=== PATIENT | male | born 1950 | race Caucasian/White ===

== ENCOUNTER 2018-02-03 15:30 | Inpatient (IN) | payer OTHER ==
[~2018-02-03] VITALS: Ht 175.3 cm; Wt 48.1 kg
[2018-02-03 15:33] VITALS: BP_SYST 98
[2018-02-03] MEDS ORDERED: NACL 0.9% 1,000 ML IV ONE ×2 (15:45→16:00)
[2018-02-03 16:03] LABS: HEMATOCRIT 35.9 % (36-54); HEMOGLOBIN 11.4 g/dL (14.0-18.0); MEAN CORPUSCULAR HEMOGLOBIN 32 pg (27-31); MEAN CORPUSCULAR HGB CONC 32 % (32-36); MEAN CORPUSCULAR VOLUME 100 fL (79.0-98.0); PLATELET COUNT (AUTO) 170 K/uL (130-430); RED BLOOD CELL COUNT(AUTO) 3.59 MIL/uL (4.2-6.2); RED CELL DISTRIBUTION WIDTH 23.7 % (9.0-15.0); WHITE BLOOD COUNT (AUTO) 3.2 K/uL (4.8-10.8)
[2018-02-03 16:13] LABS: CALCIUM 8.5 mg/dL (8.4-11.0); CREATININE 1.26 mg/dL (0.55-1.30); POTASSIUM 4.5 mmol/L (3.5-5.1)
[2018-02-03 16:19] LABS: ALBUMIN 2.5 g/dL (3.4-4.8); TOTAL BILIRUBIN 0.5 mg/dL (0.0-1.0)
[2018-02-03 16:20] LABS: PROTHROMBIN TIME 10.4 SECS (9.5-12.5)
[2018-02-03] MEDS ORDERED: ASPIRIN 81 MG TAB.CHEW PO ONE (16:30)
[2018-02-03 17:03] LABS: BAND % (MANUAL) 4 % (0-6); BASOPHILS % (MANUAL) 0 % (0-2); EOSINOPHILS % (MANUAL) 0 % (0-7); LYMPHOCYTES % (MANUAL) 31 % (20-46); MONOCYTES % (MANUAL) 15 % (0-11)
[2018-02-03] MEDS ORDERED: PRO40 PO (17:08)
[2018-02-03] MEDS ORDERED: ABAC1TAB15 PO (17:08)
[2018-02-03] MEDS ORDERED: BISA5TAB10 PO (17:08)
[2018-02-03] MEDS ORDERED: TRAZ-126 PO (17:08)
[2018-02-03] MEDS ORDERED: UBID30CA PO (17:08)
[2018-02-03] MEDS ORDERED: MYL80 PO (17:08)
[2018-02-03] MEDS ORDERED: HEPA500015 SUBCUT (17:08)
[2018-02-03] MEDS ORDERED: DOCU-144 PO (17:08)
[2018-02-03] MEDS ORDERED: SENN8.6T19 PO (17:08)
[2018-02-03] MEDS ORDERED: GABA-529 PO (17:08)
[2018-02-03] MEDS ORDERED: ALBU2.5V7 INH (17:08)
[2018-02-03] MEDS ORDERED: FOLI0.8T42 PO (17:08)
[2018-02-03] MEDS ORDERED: OXYC-521 PO (17:08)
[2018-02-03] MEDS ORDERED: IPRA3AMP9 INH (17:08)
[2018-02-03] MEDS ORDERED: MAR2.5 PO (17:08)
[2018-02-03] MEDS ORDERED: SER25 PO (17:08)
[2018-02-03] MEDS ORDERED: PENT400T12 PO (17:08)
[2018-02-03] MEDS ORDERED: FERR-69 PO (17:08)
[2018-02-03] MEDS ORDERED: TAMS-11 PO (17:08)
[2018-02-03] MEDS ORDERED: AZIT250T PO (17:08)
[2018-02-03] MEDS ORDERED: LIDOINT TP (17:08)
[2018-02-03] MEDS ORDERED: LACT10SO7 PO (17:08)
[2018-02-03] MEDS ORDERED: SULF1TAB48 PO (17:08)
[2018-02-03] MEDS ORDERED: ZIN220 PO (17:08)
[2018-02-03] MEDS ORDERED: FURO-149 PO (17:08)
[2018-02-03] MEDS ORDERED: FINA5TAB3 PO (17:08)
[2018-02-03 17:33] VITALS: BP_SYST 108
[2018-02-03] MEDS ORDERED: DOCUSATE SODIUM 100 MG CAPSULE PO PRN (18:00)
[2018-02-03] MEDS ORDERED: MAGNESIUM SULFATE 50 ML IV PRN (18:00)
[2018-02-03] MEDS ORDERED: ACETAMINOPHEN 325 MG TABLET PO PRN (18:00)
[2018-02-03] MEDS ORDERED: MUPIROCIN 2% TOPICAL OINTMENT 22 GM NS PRN (18:00)
[2018-02-03] MEDS ORDERED: LORazepam 2 MG/ML VIAL IVP PRN (18:00)
[2018-02-03] MEDS ORDERED: traZODone HCL 50 MG TABLET (DESYREL) PO PRN (18:00)
[2018-02-03] MEDS ORDERED: ALBUTEROL SULFATE 0.083% 2.5 MG/3 ML VIAL.NEB INH PRN (18:00)
[2018-02-03] MEDS ORDERED: ZOLPIDEM TARTRATE 5 MG TABLET PO PRN (18:00)
[2018-02-03] MEDS ORDERED: ONDANSETRON HCL 4 MG/2 ML VIAL IVP PRN (18:00)
[2018-02-03] MEDS ORDERED: INSULIN ASPART 100 UNITS/ML, 10 ML VIAL (NovoLOG) SUBCUT PRN (18:00)
[2018-02-03] MEDS ORDERED: POTASSIUM CHLORIDE 20 MEQ TAB.PRT.SR PO PRN (18:00)
[2018-02-03] MEDS ORDERED: DEXTROSE 50% JECT 50 ML DISP.SYRIN IVP PRN (18:00)
[2018-02-03 18:36] VITALS: BP_SYST 108
[2018-02-03] MEDS ORDERED: LACTULOSE 20 GM/30 ML UDC PO PRN (18:45)
[2018-02-03] MEDS ORDERED: VANCOMYCIN HCL 1,000 MG in NS 250 ML IV ONE (19:00)
[2018-02-03] MEDS: MORPHINE 2 MG/ML INJ. SYRINGE IVP PRN (20:00)
[2018-02-03 20:10] VITALS: BP_SYST 97
[2018-02-03] MEDS ORDERED: HEPARIN SODIUM,PORCINE 5000 UNITS/ML VIAL SUBCUT SCH (21:00)
[2018-02-03] MEDS: GABAPENTIN 100 MG CAPSULE PO SCH (21:46)
[2018-02-03] MEDS: DOCUSATE SODIUM 100 MG CAPSULE PO SCH (21:46)
[2018-02-03] MEDS: FINASTERIDE 5 MG TABLET (PROSCAR) PO SCH (21:46)
[2018-02-03] MEDS: QUEtiapine FUMARATE 25 MG TABLET PO SCH (21:46)
[2018-02-03] MEDS: HEPARIN SODIUM,PORCINE 5000 UNITS/ML VIAL SUBCUT SCH (21:48)
[2018-02-03] MEDS: NACL 0.9% 1,000 ML IV SCH (21:54)
[2018-02-04] MEDS: MORPHINE 2 MG/ML INJ. SYRINGE IVP PRN ×4 (00:01→22:07)
[2018-02-04 00:59] VITALS: BP_SYST 109
[2018-02-04] MEDS: IPRATROPIUM/ALBUTEROL SULFATE 3 ML AMPUL.NEB (DUONEB) INH PRN ×2 (03:04→20:10)
[2018-02-04 08:30] VITALS: BP_SYST 98
[2018-02-04 08:45] LABS: MEAN CORPUSCULAR VOLUME 100 fL (79.0-98.0)
[2018-02-04 08:56] LABS: CALCIUM 8.3 mg/dL (8.4-11.0); CREATININE 0.89 mg/dL (0.55-1.30); POTASSIUM 4.6 mmol/L (3.5-5.1)
[2018-02-04] MEDS: DOCUSATE SODIUM 100 MG CAPSULE PO SCH ×3 (09:00→21:23)
[2018-02-04] MEDS: GABAPENTIN 100 MG CAPSULE PO SCH ×3 (09:00→21:23)
[2018-02-04] MEDS: FUROSEMIDE 40 MG TABLET PO SCH (09:00)
[2018-02-04] MEDS ORDERED: LAMIVUDI PO SCH (09:00)
[2018-02-04] MEDS: BISACODYL 5 MG TABLET.DR (DULCOLAX) PO SCH (09:00)
[2018-02-04] MEDS ORDERED: ABACAVIR PO SCH (09:00)
[2018-02-04] MEDS: HEPARIN SODIUM,PORCINE 5000 UNITS/ML VIAL SUBCUT SCH ×2 (09:00→21:36)
[2018-02-04] MEDS ORDERED: DOLUTEGRAVIR PO SCH (09:00)
[2018-02-04] MEDS: NEPHROVITE, (FOLIC ACID/VITAMIN B COMP W-C 1 TAB) PO SCH (09:00)
[2018-02-04 09:03] LABS: PROTHROMBIN TIME 10.4 SECS (9.5-12.5)
[2018-02-04 09:05] LABS: BASOPHILS % (AUTO) 1.5 % (0.0-2.0); EOSINOPHILS % (AUTO) 0.6 % (0.0-4.0); LYMPHOCYTES # (AUTO) 0.8 K/uL (1.0-5.5); LYMPHOCYTES % (AUTO) 34.6 % (20.5-51.5); NEUTROPHILS # (AUTO) 1.3 K/uL (1.8-7.7); WHITE BLOOD COUNT (AUTO) 2.4 K/uL (4.8-10.8)
[2018-02-04 09:06] LABS: MONOCYTES # (AUTO) 0.3 K/uL (0.0-1.0)
[2018-02-04 09:07] LABS: HEMATOCRIT 34.6 % (36-54); HEMOGLOBIN 10.9 g/dL (14.0-18.0); MEAN CORPUSCULAR HEMOGLOBIN 32 pg (27-31); MEAN CORPUSCULAR HGB CONC 32 % (32-36); PLATELET COUNT (AUTO) 138 K/uL (130-430); RED BLOOD CELL COUNT(AUTO) 3.47 MIL/uL (4.2-6.2); RED CELL DISTRIBUTION WIDTH 23.7 % (9.0-15.0)
[2018-02-04] MEDS: NACL 0.9% 1,000 ML IV SCH (10:40)
[2018-02-04 11:30] LABS: NEUTROPHILS % (AUTO) 49.3 % (40.0-70.0)
[2018-02-04 12:18] VITALS: BP_SYST 103
[2018-02-04] MEDS ORDERED: ONDANSETRON HCL 4 MG/2 ML VIAL IVP PRN (14:15)
[2018-02-04] MEDS ORDERED: fentaNYL CITRATE/PF 100 MCG/2 ML AMP IVP PRN ×2 (14:15)
[2018-02-04] MEDS ORDERED: LR 1,000 ML IV.SOLN IV ONE (14:35)
[2018-02-04] MEDS ORDERED: MIDAZOLAM HCL 5 MG/ML VIAL (VERSED) IV ONE (14:35)
[2018-02-04] MEDS ORDERED: BUPIVACAINE /PF 0.75% 10 ML VIAL INJ ONE (14:35)
[2018-02-04] MEDS ORDERED: VANCOMYCIN HCL 750 MG in NS 250 ML IV SCH (19:00)
[2018-02-04] MEDS: QUEtiapine FUMARATE 25 MG TABLET PO SCH (21:23)
[2018-02-04] MEDS: FINASTERIDE 5 MG TABLET (PROSCAR) PO SCH (21:23)
[2018-02-04 21:59] VITALS: BP_SYST 104
[2018-02-05 00:24] VITALS: BP_SYST 112
[2018-02-05] MEDS: NACL 0.9% 1,000 ML IV SCH ×2 (05:35→14:17)
[2018-02-05 06:15] LABS: BASOPHILS % (AUTO) 0.5 % (0.0-2.0); EOSINOPHILS % (AUTO) 0.3 % (0.0-4.0); HEMATOCRIT 31.5 % (36-54); LYMPHOCYTES # (AUTO) 1.2 K/uL (1.0-5.5); LYMPHOCYTES % (AUTO) 28.6 % (20.5-51.5); MEAN CORPUSCULAR HEMOGLOBIN 32 pg (27-31); MEAN CORPUSCULAR HGB CONC 32 % (32-36); MEAN CORPUSCULAR VOLUME 102 fL (79.0-98.0); MONOCYTES # (AUTO) 0.5 K/uL (0.0-1.0); MONOCYTES % (AUTO) 13.1 % (1.7-9.3); NEUTROPHILS # (AUTO) 2.4 K/uL (1.8-7.7); NEUTROPHILS % (AUTO) 57.5 % (40.0-70.0); PLATELET COUNT (AUTO) 128 K/uL (130-430); RED BLOOD CELL COUNT(AUTO) 3.11 MIL/uL (4.2-6.2); WHITE BLOOD COUNT (AUTO) 4.1 K/uL (4.8-10.8)
[2018-02-05 06:19] LABS: CALCIUM 8.5 mg/dL (8.4-11.0); CREATININE 0.71 mg/dL (0.55-1.30); POTASSIUM 4.6 mmol/L (3.5-5.1)
[2018-02-05 08:02] VITALS: BP_SYST 121
[2018-02-05] MEDS: FUROSEMIDE 40 MG TABLET PO SCH (09:00)
[2018-02-05] MEDS: HEPARIN SODIUM,PORCINE 5000 UNITS/ML VIAL SUBCUT SCH ×2 (09:00→20:13)
[2018-02-05] MEDS: BISACODYL 5 MG TABLET.DR (DULCOLAX) PO SCH (09:00)
[2018-02-05] MEDS: GABAPENTIN 100 MG CAPSULE PO SCH ×3 (09:00→20:12)
[2018-02-05] MEDS: NEPHROVITE, (FOLIC ACID/VITAMIN B COMP W-C 1 TAB) PO SCH (09:00)
[2018-02-05] MEDS: DOCUSATE SODIUM 100 MG CAPSULE PO SCH ×3 (09:00→20:12)
[2018-02-05 12:00] VITALS: BP_SYST 107
[2018-02-05 16:00] VITALS: BP_SYST 110
[2018-02-05] MEDS: MORPHINE 2 MG/ML INJ. SYRINGE IVP PRN (18:02)
[2018-02-05 18:53] VITALS: BP_SYST 110
[2018-02-05 19:57] VITALS: BP_SYST 115
[2018-02-05] MEDS: FINASTERIDE 5 MG TABLET (PROSCAR) PO SCH (20:13)
[2018-02-05] MEDS: QUEtiapine FUMARATE 25 MG TABLET PO SCH (20:13)
[2018-02-05] MEDS: IPRATROPIUM/ALBUTEROL SULFATE 3 ML AMPUL.NEB (DUONEB) INH PRN (20:16)
== END 2018-02-05 20:50 | DRG 463 ==
LOC: SED 15:30 → STU 16:46 → SMU 02-04 21:37
PROVIDERS: ADMIT General Practice; ATTEND General Practice
PROC: 0JBP0ZZ Excision of Left Lower Leg Subcutaneous Tissue and Fascia, Open Approach (ICD-10-PCS; principal; 2018-02-05)
DX: T87.44 Infection of amputation stump, left lower extremity (principal); I21.A1 Myocardial infarction type 2; L03.116 Cellulitis of left lower limb; I42.0 Dilated cardiomyopathy; I50.40 Unspecified combined systolic (congestive) and diastolic (congestive) heart failure; Y83.5 Amputation of limb(s) as the cause of abnormal reaction of the patient, or of later complication, without mention of misadventure at the time of the procedure; E11.22 Type 2 diabetes mellitus with diabetic chronic kidney disease; E11.40 Type 2 diabetes mellitus with diabetic neuropathy, unspecified; E11.51 Type 2 diabetes mellitus with diabetic peripheral angiopathy without gangrene; I25.10 Atherosclerotic heart disease of native coronary artery without angina pectoris; N18.9 Chronic kidney disease, unspecified; Z21 Asymptomatic human immunodeficiency virus [HIV] infection status; F17.210 Nicotine dependence, cigarettes, uncomplicated; Z66 Do not resuscitate; K21.9 Gastro-esophageal reflux disease without esophagitis; N40.0 Benign prostatic hyperplasia without lower urinary tract symptoms; I48.0 Paroxysmal atrial fibrillation; J44.9 Chronic obstructive pulmonary disease, unspecified; Z89.512 Acquired absence of left leg below knee; Z95.5 Presence of coronary angioplasty implant and graft; Z95.810 Presence of automatic (implantable) cardiac defibrillator; Y92.89 Other specified places as the place of occurrence of the external cause; Z79.899 Other long term (current) drug therapy
CPT/HCPCS: 36415; 71045; 80048; 80053; 82962; 83036; 83605; 83735-TC; 83880; 84484; 85007; 85025; 85027; 85610-TC; 85730-TC; 87040-TC; 87070-TC; 87081; 93005; 93306; 94640; 96360; 99285; J1644; J1815; J2060; J2250; J2270; J3370; J3490; J7030; J7050; J7120; J7620